=== PATIENT | female | born 1990 | race Asian ===

== ENCOUNTER 2019-03-19 15:33 | Emergency (ER) | payer MEDICAID ==
[~2019-03-19] VITALS: Ht 177.8 cm; Wt 104.3 kg
[2019-03-19] MEDS ORDERED: SODIUM CHLORIDE 0.9% 500 ML IVB ONE (16:06)
[2019-03-19] MEDS ORDERED: LORazepam 2MG/ML-1ML VIAL ONE (16:11)
[2019-03-19] MEDS: LEVETIRACETAM INJ 1,000 MG in D5W 5% 100 ML IV ONE ×2 (16:15→16:55)
[2019-03-19 16:25] LABS: Basophils # (auto) 0.1 uL; Eosinophils # (auto) 0.1 uL; Monocytes # (auto) 0.4 uL
[2019-03-19 16:27] LABS: Basophils % (auto) 0.7 % (0.0-2.0); Eosinophils % (auto) 0.7 % (0.0-7.0); Hematocrit 37.5 % (36.0-46.0); Hemoglobin 11.6 g/dL (12.2-16.2); Lymphocytes # (auto) 2.5 uL; Lymphocytes % (auto) 31.4 % (10.0-50.0); Mean Corpuscular Hemoglobin 19.1 pg (28.0-32.0); Mean Corpuscular Volume 61.6 fL (80.0-100.0); Neutrophils % (auto) 62.2 % (37.0-80.0); Platelet Count (auto) 270 10^3/uL (140-450); Red Blood Cells 6.09 10^6/uL (4.0-5.20); Red Cell Distribution Width 17.8 % (11.8-14.3); White Blood Cell 8.1 10^3/uL (4.4-10.8)
[2019-03-19 16:35] LABS: Calcium 8.5 mg/dL (8.5-10.1)
[2019-03-19 16:41] LABS: BUN/Creatinine Ratio 12.3; Bilirubin, Total 0.2 mg/dL (0.2-1.0); Total Protein 8.4 g/dL (6.4-8.2)
[2019-03-19 16:45] LABS: Potassium 2.9 mmol/L (3.5-5.1)
[2019-03-19] MEDS ORDERED: LORazepam 2MG/ML-1ML VIAL IV ONE (16:45)
[2019-03-19] MEDS ORDERED: POTASSIUM CHL 20 Meq TABLET PO ONE (17:00)
[2019-03-19 19:57] VITALS: BP 95/53
== END 2019-03-19 20:31 | disposition home or self-care (01) ==
LOC: ER 15:33 → EDBD 15:33 → ER 20:31
DX: R56.9 Unspecified convulsions (principal)
CPT/HCPCS: 36415; 70450; 80053; 82962; 83735; 84702; 85025; 93005; 96365; 96375; 99284; J1953; J2060; J7030; J7060